=== PATIENT | male | born 1995 | race African-American/Black ===

== ENCOUNTER 2018-12-18 12:23 | Inpatient (IN) | payer OTHER ==
[~2018-12-18] VITALS: Ht 172.7 cm; Wt 92.1 kg
[2018-12-18] MEDS ORDERED: MELA5CAP2 PO (12:51)
[2018-12-18 13:34] LABS: HEMATOCRIT 46.1 % (42.0-52.0); HEMOGLOBIN 15.9 g/dl (13.5-17.5); MEAN CORPUSCULAR HEMOGLOBIN 30.5 pg (27.0-33.0); MEAN CORPUSCULAR HGB CONC 34.5 g/dl (32.0-36.5); MEAN CORPUSCULAR VOLUME 88.5 fl (80.0-96.0); PLATELET COUNT, AUTOMATED 247 10^3/uL (150-450); RED BLOOD COUNT 5.21 10^6/uL (4.30-6.10); WHITE BLOOD COUNT 5.6 10^3/uL (4.0-10.0)
[2018-12-18 14:04] LABS: AMPHETAMINES LEVEL URINE NEGATIVE (NEGATIVE); BARBITURATES URINE NEGATIVE (NEGATIVE); BENZODIAZEPINES URINE NEGATIVE (NEGATIVE); CANNABINOIDS URINE NEGATIVE (NEGATIVE); COCAINE METABOLITE URINE NEGATIVE (NEGATIVE); METHADONE URINE NEGATIVE (NEGATIVE); OPIATES URINE NEGATIVE (NEGATIVE); PHENCYCLIDINE URINE NEGATIVE (NEGATIVE)
[2018-12-18 14:15] LABS: ACETAMINOPHEN LEVEL < 2.0 UG/ML (10.0-30.0); ALBUMIN 4.1 GM/DL (3.2-5.2); ALT/SGPT 56 U/L (12-78); BILIRUBIN,DIRECT 0.1 MG/DL (0.0-0.2); BILIRUBIN,TOTAL 0.6 MG/DL (0.2-1.0); BLOOD UREA NITROGEN 19 MG/DL (7-18); CALCIUM LEVEL 9.4 MG/DL (8.5-10.1); CARBON DIOXIDE LEVEL 28 MEQ/L (21-32); CHLORIDE LEVEL 107 MEQ/L (98-107); CREATININE FOR GFR 1.03 MG/DL (0.70-1.30); ETHYL ALCOHOL (ETHANOL) 0.006 % (0.000-0.010); GLOMERULAR FILTRATION RATE > 60.0 (>60); GLUCOSE, FASTING 98 MG/DL (70-100); POTASSIUM SERUM 4.4 MEQ/L (3.5-5.1); SALICYLATE LEVEL < 1.7 MG/DL (5.0-30.0); SODIUM LEVEL 141 MEQ/L (136-145); TOTAL PROTEIN 7.8 GM/DL (6.4-8.2)
[2018-12-18] MEDS ORDERED: MAALOX 30 ML SUSP *UDC PO PRN (15:15)
[2018-12-18] MEDS ORDERED: ACETAMINOPHEN TAB 650MG DOSE (2X325MG) PO PRN (15:15)
[2018-12-18] MEDS ORDERED: MOM 30ML SUSPENSION UDC PO PRN (15:15)
[2018-12-18] MEDS ORDERED: traZODone 50 MG TAB PO PRN (15:15)
[2018-12-18] MEDS: NICOTINE 21MG/24HR 1 EA TRANSDERMAL TD SCH (16:21)
[2018-12-18 20:01] VITALS: BP 144/79
[2018-12-19 06:13] VITALS: BP 126/69
[2018-12-19] MEDS: NICOTINE 21MG/24HR 1 EA TRANSDERMAL TD SCH (09:02)
[2018-12-19] MEDS ORDERED: CYCLOBENZAPRINE 5MG TABLET PO PRN (09:45)
[2018-12-19] MEDS ORDERED: IBUPROFEN 600 MG TAB PO PRN (09:45)
--- NOTE | 2018-12-19 09:54 | HPEPDOC ---
General Date of Admission Dec 18, 2018 at 15:05 Date of Service: Dec 19, 2018 Attending Physician: CNADELARIA RIGGS MD Chief Complaint The patient is a 23-year-old male admitted with a reason for visit of Unspecified Depression. 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 On medical assessment, he complains of intermittent low back pain with radiation down his legs even when sitting still. Also reports periods of left leg falling asleep. However, denies chest pain, shortness of breath, weakness, chills, fever, problems with incontinence of bladder or bowel. Home Medications Scheduled Melatonin (Melatonin) 5 Mg Capsule, 10 MG PO QHS, (Reported) Allergies Coded Allergies: No Known Allergies (Verified Allergy, Unknown, 12/18/18) Past Medical History Medical History Nicotine dependence Surgical History Chin laceration repair Family History Significant Family History: No pertinent family hx Social History * Smoker: current smoker Alcohol: occationally Drugs: denies A-FIB/CHADSVASC A-FIB History Current/History of A-Fib/PAF?: No Current PO Anticoag Therapy: No Review of Systems Other systems A pertinent 10 point review of systems is completed, negative except as stated in the history of presenting illness Physical Examination Other physical findings GENERAL: NAD SKIN : Warm, dry intact HEENT: Atraumatic, normocephalic, PERRL, moist mucous membrane CARDIOVASCULAR: Regular rate and rhythm, S1S2, no JVD, no edema, distal pulses + palpable RESP: CTAB, no accessory muscle use noted ABDOMEN: BS+ non distended non tender MS: no joint deformities NEURO: Alert and oriented x 3, CN2-12 grossly intact . positive straight leg raise sign to right PSYCH: no anxiety or agitation, appropriate mood and affect. Vital Signs Vital Signs Date Time Temp Pulse Resp B/P (MAP) Pulse Ox O2 Delivery O2 Flow Rate FiO2 12/19/18 06:13 98.3 46 18 126/69 (88) 12/18/18 20:01 98 12/18/18 12:38 Room Air Laboratory Data Labs 24H Laboratory Tests 2 12/18/18 13:02: Nucleated Red Blood Cells % (auto) 0.0, Anion Gap 6L, Glomerular Filtration Rate > 60.0, Calcium Level 9.4, Aspartate Amino Transf (AST/SGOT) 37, Alanine Aminotransferase (ALT/SGPT) 56, Alkaline Phosphatase 71, Total Bilirubin 0.6, Direct Bilirubin 0.1, Total Protein 7.8, Albumin 4.1, Albumin/Globulin Ratio 1.11, Thyroid Stimulating Hormone (TSH) 0.540, Salicylates Level < 1.7L, Urine Amphetamines Screen NEGATIVE, Urine Benzodiazepines Screen NEGATIVE, Urine Opiates Screen NEGATIVE, Urine Methadone Screen NEGATIVE, Acetaminophen Level < 2.0L, Urine Barbiturates Screen NEGATIVE, Urine Phencyclidine Screen NEGATIVE, Urine Cocaine Metabolite Screen NEGATIVE, Urine Cannabinoids Screen NEGATIVE, Ethyl Alcohol Level 0.006 CBC/BMP Laboratory Tests 12/18/18 13:02 Red Blood Count 5.21, Mean Corpuscular Volume 88.5, Mean Corpuscular Hemoglobin 30.5, Mean Corpuscular Hemoglobin Concent 34.5, Red Cell Distribution Width 11.9 Assessment/Plan Low back pain -With intermittent radicular symptoms -Ibuprofen and Flexeril as needed -CT lumbar spine without contrast for further evaluation Nicotine dependence -Counseling provided Suicidal ideation -Management by primary team Plan / VTE VTE Prophylaxis Ordered?: No VTE Exclusion Mechanical Proph: Low Risk for VTE YADIRA MORGAN Dec 19, 2018 09:54
--- NOTE | 2018-12-19 11:25 | REP ---
CT OF THE LUMBAR SPINE WITHOUT CONTRAST. INDICATION: Low back pain. COMPARISON: None TECHNIQUE: Axial CT of the lumbar spine was performed without contrast. Bone reformatted images were obtained in the axial coronal and sagittal planes. FINDINGS: There is 3 mm anterolisthesis of L5 on S1 with bilateral pars defects. There is 1-2 mm retrolisthesis of L4 on L5. Vertebral body heights and intervertebral disc spaces are maintained. There is normal curvature of the lumbar spine. There is a 2 x 7 mm well corticated osseous fragment within the left lateral epidural space at the level of L5-S1 pars fracture. There is similar bony fragment on the right within the right epidural space at L5-S1. The paraspinal soft tissues are within normal limits. There is no significant spinal canal stenosis IMPRESSION: 1. 3 mm anterolisthesis of L5 on S1 with bilateral spondylolysis. There are 2 x 7 mm corticated fragment on the left and the right within the lateral epidural spaces at this level related to pars deformities. 2. No significant spinal canal stenosis. Electronically Signed by Chelsi Greco MD 12/19/2018 11:30 A
--- NOTE | 2018-12-19 14:20 | MHHPEPDOC ---
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 The patient reports that he has had increased low mood, loss of Interest, insomnia and difficulty attending to his job and is currently facing chapter 15 proceedings. The patient notes significant stressors, including unrequited love for a girl that he had broken up with several years ago as well as difficulty with dealing with a new chain of command. He describes difficulty with identity problems, avoidance and anxiety worrying about what others "think of him" during the majority of his day. He describes that he's had difficulties with his financial situation due to a large amount of credit card debt that he describes that he accumulated "over time" as he reports not thinking very clearly about it. He denies that this was in punctuated episodes or otherwise consistent with alexa, but a long-term chronic impulsivity. Review Of Systems Depression: As above, reports no episodes meeting MDD criteria prior to this episode. Anxiety: The patient denies any excessive worry associated with physical symptoms. They deny any experience of discreet panic in the past. Alexa: The patient denies any episodes of euphoria/dysphoria associated with decreased need for sleep, hedonism, talkatively or impulsivity lasting longer than 5 days. Psychotic: The patient denies any experiences of auditory or visual hallucinations. They deny any episodes of paranoia or delusional thinking in the past Trauma: The patient denies any traumatic events associated with nightmares or intrusive thoughts. Borderline: Screens positive for avoidant traits and possible cluster B traits. Past Psychiatric History The patient reports no history of psychiatric admissions, medication trials or current follow up. Allergies Please see below. Family Psychiatric History The patient reports his mother has significant trouble with addiction and his brother had attempted suicide. Unaware of any mental health diagnosis in the family. 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 The patient grew up in [place] and reported that his early life was disrupted as his parents had split up and his mother had become addicted to drugs. He describes his father as an overbearing, difficult to work with man who frequently criticized him. He describes growing up with the stepmother and then subsequently joining the . He reports that he was advised to do so by family and that he has had difficulty adjusting to the local area. He currently reports only having three close friends at this time who are currently away, on leave. He reports being not allowed for leave as being "high risk for AWOL". He has no children, has never been . He has completed high school with no legal charges other than reported chapter 15 proceedings noted. He reports never being deployed in the past. He is currently pending a deployment in February. Substance Abuse History The patient reports smoking roughly a pack a day of cigarettes and drinking a significant amount of alcohol at once. He reports that he will drink on the weekends with his friends until he "blacks out" roughly nine drinks at a time. The patient reports that prior to the he did smoke some cannabis roughly two to three times a week. Denies any harder drugs such as cocaine, heroin or synthetic marijuana. Medical History Reports a history of chronic pain secondary to his service in the . Mental Status Examination General: Well dressed with good hygiene Speech: Spontaneous and fluid Thought processes: Linear and logical MSK: Smooth and coordinated gait, no signs of tremors or involuntary orofacial movements Thought content: Reflective Abstract reasoning, and computation: Intact Description of associations: Intact Description of abnormal or psychotic thoughts: Denies any suicidal or homicidal ideation. Denies any auditory or visual hallucinations. Does not appear to be responding to internal stimuli. Does not appear to be endorsing any bizarre or paranoid ideation. Judgment: fair Insight: fair Orientation: Alert and orientated 3 Cognition: Grossly normal Recent and remote memory: Intact Attention span and concentration: Intact Fund of knowledge: Adequate Mood: "okay" Affect: Mildly dysthymic with constricted range. Diagnoses Unspecified depressive disorder. Rule out adjustment versus MDD versus substance induced. Alcohol use disorder, moderate. Nicotine use disorder, moderate. Cannabis use disorder, mild in remission. 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 However, his mental status exam on observation seemed to suggest an adjustment disorder rather than a clinical depression. The patient's likely has some pre- existing clinical traits. However, substance abuse is difficult to rule out as a cause of mood variation and difficulties attending to his occupational needs. Disposition The patient will need an admission likely lasting longer than 2 midnights in order to treat his depressed symptoms and to assure a safe discharge. Problem List 1. Risk for suicide. 2. Depression. 3. Ineffective coping. 4. Substance abuse. Initial Treatment Plan 1. Patient was admitted on a 9.39 legal status. 2. Complete history was obtained. 3. With patients permission, family will be contacted and database will be expanded. 4. Patients medication regimen will be reviewed and changed accordingly. 5. Patient will be provided with protected environment. 6. Patient will be treated with individual, group, and milieu therapies. 7. Patient will receive supportive psych-education. 8. Discharge planning will commence immediately. 9. Outpatient follow-up treatment will be strongly recommended. 10. The initial treatment plan will focus initially on: Starting sertraline 25 mg daily. Discussed risk, benefits and potential side effects with the patient as well as potential alternatives of which the patient selected this route of tr eatment. Estimated Length Of Stay Three days. Time Spent Fifty minutes. Saturday Vital Signs Vital Signs Date Time Temp Pulse Resp B/P (MAP) Pulse Ox O2 Delivery O2 Flow Rate FiO2 12/19/18 06:13 98.3 46 18 126/69 (88) 12/18/18 20:01 98 12/18/18 12:38 Room Air Medications Scheduled Melatonin (Melatonin) 5 Mg Capsule, 10 MG PO QHS, (Reported) Allergies Coded Allergies: No Known Allergies (Verified Allergy, Unknown, 12/18/18) DIMITRY DOZIER DO Dec 19, 2018 14:20
--- NOTE | 2018-12-19 15:55 | REP ---
HISTORY: Bilateral L5 spondylolysis. Obtain flexion and extension bending views to assess stability. There is a grade I-II L5 upon S1 spondylolisthesis secondary to bilateral L5 spondylolysis. This does not change significantly with flexion and extension bending views. The disc spaces are relatively well maintained throughout with mild posterior disc space narrowing. Vertebral body height is normal throughout. The pedicles are intact bilaterally. IMPRESSION: No evidence of instability. Findings as described above. Electronically Signed by Babak Taylor DO 12/19/2018 04:06 P
[2018-12-19] MEDS ORDERED: SERTRALINE HCL 25 MG TABLET PO ONE (17:00)
[2018-12-19 18:15] VITALS: BP 116/71
[2018-12-20 06:48] VITALS: BP 109/63
[2018-12-20] MEDS ORDERED: SERTRALINE HCL 25 MG TABLET PO SCH (09:00)
[2018-12-20] MEDS: NICOTINE 21MG/24HR 1 EA TRANSDERMAL TD SCH (09:14)
[2018-12-20 18:04] VITALS: BP 123/78
[2018-12-21 06:48] VITALS: BP 107/55
[2018-12-21] MEDS: NICOTINE 21MG/24HR 1 EA TRANSDERMAL TD SCH (09:05)
[2018-12-21] MEDS ORDERED: SERTRALINE HCL 25 MG TABLET PO ONE (10:00)
--- NOTE | 2018-12-21 10:49 | MHIPN ---
DATE: 12/20/2018 VITAL SIGNS: Temperature 97.4, pulse 50, respirations 16, blood pressure 109/64. CURRENT MEDICATION: - Sertraline 25 mg every a.m. 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 He is being treated at [facility] [place]. The precipitating stressors have been loss of a girlfriend several years ago, he is having some issues with his chain of command apparently and he has major financial issues. The patient was just started on Sertraline. He is tolerating it well. He reports his mood as improving. He likes the groups here. He is involved in the social milieu. He is future oriented. He has no other complaints. MENTAL STATUS EXAMINATION: The patient is alert, oriented and cooperative. Grooming and hygiene is quite good. Eye contact is good. No signs of psychosis. Any depressive symptoms are minimal. He denies anxiety symptoms. Insight and judgment are fair. No signs of cognitive deficits. No signs of impulsivity or dangerousness. DIAGNOSES: Depressive disorder unspecified. Alcohol use disorder, moderate. ASSESSMENT: The patient appears to be tolerating low dose Zoloft well. PLAN: Continue present management. Continue involvement in hospital milieu.
[2018-12-21 18:48] VITALS: BP 137/66
[2018-12-22 06:46] VITALS: BP 117/53
[2018-12-22] MEDS: NICOTINE 21MG/24HR 1 EA TRANSDERMAL TD SCH (08:14)
[2018-12-22] MEDS ORDERED: NICO21PAT TD (08:56)
[2018-12-22] MEDS ORDERED: SERT-155 PO (08:56)
[2018-12-22] MEDS ORDERED: SERTRALINE HCL 50 MG TAB PO SCH (09:00)
--- NOTE | 2018-12-22 09:45 | MHDSPDOC ---
[facility] Discharge Summary Discharge Summary DATE OF ADMISSION: Dec 18, 2018 at 15:05 DATE OF DISCHARGE: 12/22/18 Date of Service: 12/22/2018 Diagnoses Unspecified depressive disorder. Rule out adjustment versus MDD versus substance induced. Alcohol use disorder, moderate. Nicotine use disorder, moderate. Cannabis use disorder, mild in remission. 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 The patient reports that he has had increased low mood, loss of Interest, insomnia and difficulty attending to his job and is currently facing chapter 15 proceedings. The patient notes significant stressors, including unrequited love for a girl that he had broken up with several years ago as well as difficulty with dealing with a new chain of command. He describes difficulty with identity problems, avoidance and anxiety worrying about what others "think of him" during the majority of his day. He describes that he's had difficulties with his financial situation due to a large amount of credit card debt that he describes that he accumulated "over time" as he reports not thinking very cl early about it. He denies that this was in punctuated episodes or otherwise consistent with emily, but a long-term chronic impulsivity. Consultants Involved Hospitalist/PCP screening Treatment and Progress On The Unit The patient was admitted and is currently denied any suicidality quickly after he was admitted. He noted difficulties with adjustment and other problems with work. He was treated with low dose sertraline after discussion of the risks and benefits, especially in lower grade depression and possible adjustment. He was increased to 50 mg with positive effects. He was notably social on the unit. Demonstrated no concerning ideation and was able to attend to his needs fairly well. He was social, attending groups without any difficulties, but strange enough did not demonstrate the hallmarks of a severely depressed patient upon his presentation. The patient did notably have difficulties with his parent who was notably fairly demeaning on the phone with him and appears to be a source of heavy critic on him. The patient requested discharge and did not meet involuntary criteria, as he was attending to his needs and not demonstrating any suicidal or homicidal ideation and had elected against a further voluntary admission and thus was discharged in good july. Discharge Assessment 23-year-old man with history of depression, however, it appears that this is more likely explained by adjustment in a very mild sense rather than a clinical depression due to the presentation and mental status exam on the unit. Mental Status Examination General: Well dressed with good hygiene Speech: Spontaneous and fluid Thought processes: Linear and logical MSK: Smooth and coordinated gait, no signs of tremors or involuntary orofacial movements Thought content: Future orientated Abstract reasoning, and computation: Intact Description of associations: Intact Description of abnormal or psychotic thoughts: Denies any suicidal or homicidal ideation. Denies any auditory or visual hallucinations. Does not appear to be responding to internal stimuli. Does not appear to be endorsing any bizarre or paranoid ideation. Judgment: fair Insight: fair Orientation: Alert and orientated 3 Cognition: Grossly normal Recent and remote memory: Intact Attention span and concentration: Intact Fund of knowledge: Adequate Mood: "okay" Affect: Euthymic with a full range Follow Up The social work team worked during the predischarge meeting in order to evaluate for further issues of lethality address them fully before discharge. They worked on safety planning with the patient's family members in order to ensure that the patient will have a safe and effective discharge. Time Spent The amount of time spent in the coordination of care for this patient was approximately 30 minutes. M Vital Signs/I&Os Vital Signs Date Time Temp Pulse Resp B/P (MAP) Pulse Ox O2 Delivery O2 Flow Rate FiO2 12/22/18 06:46 98.1 54 14 117/53 (74) 12/18/18 20:01 98 12/18/18 12:38 Room Air Medications Scheduled Melatonin (Melatonin) 5 Mg Capsule, 10 MG PO QHS, (Reported) Nicotine (Nicotine Patch) 21 Mg Patch.td24, 1 PATCH TD DAILY for smoking for 30 Days, #30 Sertraline HCl (Sertraline HCl) 50 Mg Tablet, 50 MG PO DAILY for mood for 7 Days, #7 Allergies Coded Allergies: No Known Allergies (Verified Allergy, Unknown, 12/18/18) DIMITRY DOZIER DO Dec 22, 2018 09:44
--- NOTE | 2018-12-22 20:37 | MHIPN ---
DATE: 12/21/2018 VITAL SIGNS: Temperature 97.8, pulse 54, respirations 14, blood pressure 107/55. CURRENT MEDICATIONS: Sertraline 25 mg every morning. HISTORY OF PRESENT ILLNESS: The patient states his appetite is good. He denies any gastrointestinal (GI) symptoms from the sertraline. He is sleeping better. He feels more relaxed. He is not as preoccupied by his stressors. He reports his mood is better since being on the Zoloft. He feels comfortable increasing the dosage. The patient has been attending groups. He has no other complaints. MENTAL STATUS EXAMINATION: The patient is alert, oriented and cooperative. Eye contact remains good. The patient is non-psychotic. Depressive symptoms are mild. No signs of anxiety. Insight and judgment seem improved. No signs of dangerousness. Grooming and hygiene appear quite good. DIAGNOSES: 1. Depressive disorder, unspecified. 2. Alcohol use disorder, moderate. ASSESSMENT: He is tolerating Zoloft well. PLAN: Increase sertraline to 50 mg every morning starting tomorrow. Encourage involvement in hospital milieu.
== END 2018-12-22 12:25 | disposition home or self-care (01) | DRG 881 ==
LOC: M ED 12:23 → M ED INP 15:05 → M PSY 19:52
PROVIDERS: ADMIT Psychiatry & Neurology Psychiatry; ATTEND Psychiatry & Neurology Addiction Medicine
DX: F32.9 Major depressive disorder, single episode, unspecified (principal); F10.20 Alcohol dependence, uncomplicated; F17.210 Nicotine dependence, cigarettes, uncomplicated; F12.11 Cannabis abuse, in remission; F43.20 Adjustment disorder, unspecified; M54.16 Radiculopathy, lumbar region; Z56.89 Other problems related to employment

== ENCOUNTER 2020-01-12 15:40 | Emergency (ER) | payer OTHER ==
[~2020-01-12] VITALS: Ht 172.7 cm; Wt 97.9 kg
[~2020-01-12 15:40] MED LIST: MELA5CAP2 PO; NICO21PAT TD; SERT50TA29 PO
[2020-01-12] MEDS ORDERED: methylPREDNISolone 125MG 2ML VIAL IM ONE (16:45)
[2020-01-12] MEDS ORDERED: KETOROLAC 60MG 2ML VIAL IM ONE (16:45)
[2020-01-12] MEDS ORDERED: LIDOCAINE 5% (LIDODERM) PATCH TD ONE (16:45)
[2020-01-12] MEDS ORDERED: ACETAMINOPHEN 500 MG TAB PO ONE (16:45)
[2020-01-12 17:31] VITALS: BP 136/73
[2020-01-12] MEDS ORDERED: **NOTE PATIENT COMMENT** MISC XX SCH (21:00)
== END 2020-01-12 17:37 | disposition home or self-care (01) ==
LOC: M ED 15:40
DX: M54.5 Low back pain (principal); F17.200 Nicotine dependence, unspecified, uncomplicated; Z79.899 Other long term (current) drug therapy
CPT/HCPCS: 96372; 99283; J1885; J2930